=== PATIENT | female | born 1975 | race Caucasian/White ===

== ENCOUNTER → 2020-05-07 | Outpatient (CLI) | payer OTHER | END | disposition home or self-care (01) | LOC: CARD 08:17 | PROVIDERS: ATTEND Internal Medicine Cardiovascular Disease | DX: I10 Essential (primary) hypertension (principal); R60.9 Edema, unspecified ==

== ENCOUNTER → 2020-05-22 | Outpatient (CLI) | payer OTHER | END | disposition home or self-care (01) | LOC: COVID19 01:15 | PROVIDERS: ATTEND Family Medicine | DX: Z20.828 Contact with and (suspected) exposure to other viral communicable diseases (principal) ==

== ENCOUNTER → 2021-05-08 | Outpatient (CLI) | payer OTHER | END | disposition home or self-care (01) | LOC: COVID19 15:09 | PROVIDERS: ATTEND Internal Medicine | DX: U07.1 COVID-19 (principal) ==

== ENCOUNTER → 2024-11-26 | Day surgery (SDC) | payer OTHER ==
[~2024-11-26] VITALS: Ht 162.5 cm; Wt 104.3 kg
[~2024-11-26] MED LIST: CARVEDILOL25 MG PO; CLARITIN10 MG PO; DOXAZOSIN MESYLA2 MG PO; Dexamethasone Sodium Phospha 4 MG/ML VIAL IV ONE; HYDR25T PO; Ketamine Hydrochloride 50 MG/5 ML SYRINGE IV ONE; LOSARTAN POTASS50 M1 PO; Lactated Ringer's Solution 1,000 ML IV ONE; Lidocaine Hydrochloride 30 ML VIAL ONE; Lidocaine Hydrochloride 5 ML VIAL IV ONE; Midazolam Hydrochloride 2 MG/2 ML VIAL IV ONE; Ondansetron Hydrochloride 4 MG/2 ML VIAL IV ONE; PROPOFOL 200 MG/20 ML VIAL IV ONE; VENT7GM INH; WELLBUTRIN XL300 MG PO
[2024-11-26 08:01] VITALS: BP 140/70
[2024-11-26 10:31] VITALS: BP 140/81
[2024-11-26 10:46] VITALS: BP 152/92
[2024-11-26 11:06] VITALS: BP 151/87
== END | disposition home or self-care (01) ==
LOC: SDC 11-22 08:00
PROVIDERS: ATTEND Obstetrics & Gynecology
DX: L02.219 Cutaneous abscess of trunk, unspecified (principal); I10 Essential (primary) hypertension; F41.9 Anxiety disorder, unspecified; F32.A Depression, unspecified; J45.909 Unspecified asthma, uncomplicated; Z87.440 Personal history of urinary (tract) infections; F90.9 Attention-deficit hyperactivity disorder, unspecified type; Z90.89 Acquired absence of other organs; Z98.890 Other specified postprocedural states; Z91.018 Allergy to other foods; Z91.041 Radiographic dye allergy status; Z88.1 Allergy status to other antibiotic agents; Z79.899 Other long term (current) drug therapy; Z82.49 Family history of ischemic heart disease and other diseases of the circulatory system